=== PATIENT | male | born 1970 | race Caucasian/White ===

== ENCOUNTER → 2018-08-20 | Outpatient (CLI) | payer OTHER ==
--- NOTE | 2018-08-21 08:28 | XR ---
EXAMINATION TYPE: XR Hip Bilateral Complete DATE OF EXAM: 08/20/2018 CLINICAL HISTORY: Bilateral hip pain TECHNIQUE: AP and frogleg views of the bilateral hips were obtained. COMPARISON: None. FINDINGS: There is no acute fracture/dislocation evident in either hip. On the right there is modera te right femoral acetabular arthropathy as there is acetabular sclerosis, cephalad joint space narrow ing and very small marginal osteophytes of the acetabulum and femoral head. On the left there is mild femoral acetabular arthropathy with similar findings to the right in a lesser degree. On the left th ere is a small cam deformity of the lateral femoral head neck junction demonstrated as a small osseou s protuberance that can predispose this patient to internal impingement. Femoral heads maintain a nor mal rounded morphology without collapse. IMPRESSION: 1. No acute fracture or dislocation in either hip. 2. Moderate right and mild left femoral acetabular arthropathy. 3. Small cam deformity of the left lateral femoral head neck junction that can predispose this patien t to femoral acetabular impingement syndrome.
== END | disposition home or self-care (01) ==
LOC: RADXRMAIN 14:36
PROVIDERS: ATTEND Family Medicine
DX: M16.0 Bilateral primary osteoarthritis of hip (principal)
CPT/HCPCS: 73521

== ENCOUNTER 2019-08-11 11:37 | Emergency (ER) | payer OTHER ==
--- NOTE | 2019-08-11 12:40 | ED ---
General Adult HPI - General Chief complaint: Fever Stated complaint: body aches/fever Time Seen by Provider: 08/11/19 12:09 Source: patient, RN notes reviewed Mode of arrival: ambulatory Limitations: no limitations - History of Present Illness Initial comments: 49-year-old male without any significant past medical history presents to the emergency department for a chief complaint of cough. Patient states he has had a cough and congestion since yesterday. States he started to also have chills and bodyaches yesterday. Patient did not check a temperature at home so was not sure if he had a fever. Patient denies any abdominal pain, shortness breath, chest pain. Denies nausea vomiting diarrhea. Patient denies any ear pain or throat pain.Patient has no other complaints at this time including shortness of breath, chest pain, abdominal pain, nausea or vomiting, headache, or visual changes. - Related Data Allergies Allergy/AdvReac Type Severity Reaction Status Date / Time No Known Allergies Allergy Verified 08/11/19 11:50 Review of Systems ROS Statement: Those systems with pertinent positive or pertinent negative responses have been documented in the HPI. ROS Other: All systems not noted in ROS Statement are negative. Past Medical History Past Medical History: No Reported History History of Any Multi-Drug Resistant Organisms: None Reported Past Surgical History: No Surgical Hx Reported Past Psychological History: No Psychological Hx Reported Smoking Status: Current every day smoker Past Alcohol Use History: None Reported Past Drug Use History: Marijuana General Exam Limitations: no limitations General appearance: alert, in no apparent distress Head exam: Present: atraumatic, normocephalic, normal inspection Eye exam: Present: normal appearance, PERRL, EOMI. Absent: scleral icterus, conjunctival injection, periorbital swelling ENT exam: Present: normal exam, normal oropharynx (Uvula midline), mucous membranes moist, TM's normal bilaterally, normal external ear exam Neck exam: Present: normal inspection, full ROM. Absent: tenderness, meningismus, lymphadenopathy Respiratory exam: Present: normal lung sounds bilaterally. Absent: respiratory distress, wheezes, rales, rhonchi, stridor Cardiovascular Exam: Present: regular rate, normal rhythm, normal heart sounds. Absent: systolic murmur, diastolic murmur, rubs, gallop, clicks Neurological exam: Present: alert Psychiatric exam: Present: normal affect, normal mood Course Vital Signs 08/11/19 11:48 Temperature 98.8 F Pulse Rate 66 Respiratory 20 Rate Blood Pressure 120/74 O2 Sat by Pulse 99 Oximetry Procedures - Smoking Cessation Time Spent Discussing Smoking Cessation w/Patient (Minutes): 3 Patient Acknowledges Need for Cessation: Yes Medical Decision Making - Medical Decision Making Vitals are stable, patient is afebrile. Influenza is negative. Chest x-ray shows no acute cardiopulmonary process. Patient likely has viral cough. He will be discharged home to follow up with primary care. Recommend he return if he has any worsening symptoms. - Lab Data Lab Results 08/11/19 Range/Units 12:53 Influenza Type A RNA Not Detected (Not Detectd) Influenza Type B (PCR) Not Detected (Not Detectd) Disposition Clinical Impression: Cough Disposition: HOME SELF-CARE Condition: Good Instructions (If sedation given, give patient instructions): Acute Cough (ED) Additional Instructions: Please follow up with primary care in 2 days. If you have any worsening symptoms or develop fevers return to the emergency department. Is patient prescribed a controlled substance at d/c from ED?: No Referrals: Hyun Irvin MD [REFERRING] - 1-2 days Time of Disposition: 14:10
--- NOTE | 2019-08-11 13:20 | XR ---
EXAMINATION TYPE: XR chest 2V DATE OF EXAM: 08/11/2019 COMPARISON: NONE HISTORY: Cough TECHNIQUE: Frontal and lateral views of the chest are obtained. FINDINGS: There is no focal air space opacity, pleural effusion, or pneumothorax seen. The cardiac silhouette size is within normal limits. The osseous structures are intact. IMPRESSION: No acute cardiopulmonary process.
[2019-08-11 14:32] VITALS: BP 127/65; PULSE 72; RESP 18; TEMP 98.1
== END 2019-08-11 14:25 | disposition home or self-care (01) ==
LOC: EC 11:37
DX: R05 Cough (principal); R50.9 Fever, unspecified; R09.89 Other specified symptoms and signs involving the circulatory and respiratory systems; F17.200 Nicotine dependence, unspecified, uncomplicated; Z71.6 Tobacco abuse counseling
CPT/HCPCS: 71046; 87502; 99283